=== PATIENT | female | born 1960 | race Caucasian/White ===

== ENCOUNTER 2022-01-05 13:55 | Emergency (ER) | payer MEDICAID ==
[~2022-01-05] VITALS: Ht 177.8 cm; Wt 79.4 kg
[2022-01-05] MEDS ORDERED: diphenhydrAMINE 25 MG CAP PO ONE ×2 (14:13→14:15)
[2022-01-05] MEDS ORDERED: BACITRACIN ZINC OINT 15 GM TUBE ONE (14:13)
[2022-01-05] MEDS ORDERED: ACETAMINOPHEN 325 MG TABLET ONE (14:13)
[2022-01-05] MEDS ORDERED: TDAP DIPH,PERTUSS,TET VAC/PF 0.5 ML DISP.SYRIN IM ONE ×2 (14:14→14:15)
[2022-01-05] MEDS ORDERED: CEphaleXIN 500 MG CAPSULE ONE (14:14)
[2022-01-05] MEDS ORDERED: BACITRACIN ZINC OINT 15 GM TUBE TOP ONE (14:15)
[2022-01-05] MEDS ORDERED: CEphaleXIN 500 MG CAPSULE PO ONE (14:15)
[2022-01-05] MEDS ORDERED: ACETAMINOPHEN 325 MG TABLET PO ONE (14:15)
[2022-01-05] MEDS ORDERED: ACET-2154 PO (14:20)
[2022-01-05] MEDS ORDERED: CEPH500C2 PO (14:20)
[2022-01-05] MEDS ORDERED: DIPH25TA62 PO (14:20)
--- NOTE | 2022-01-05 14:22 | NUR ---
Patient discharged to home in stable condition. Written and verbal after care instructions given. Patient verbalizes understanding of instructions. Stressed follow up or return to ER for worsening s/s.
== END 2022-01-05 15:08 | disposition home or self-care (01) ==
LOC: ER 13:55
DX: S90.861A Insect bite (nonvenomous), right foot, initial encounter (principal); L03.115 Cellulitis of right lower limb; W57.XXXA Bitten or stung by nonvenomous insect and other nonvenomous arthropods, initial encounter; Y93.H9 Activity, other involving exterior property and land maintenance, building and construction; Y92.89 Other specified places as the place of occurrence of the external cause; F17.210 Nicotine dependence, cigarettes, uncomplicated
CPT/HCPCS: 90471; 90715; 99284; 99406; Q0163; A4663

== ENCOUNTER 2022-01-22 23:40 | Emergency (ER) | payer MEDICAID ==
[~2022-01-22] VITALS: Ht 177.8 cm; Wt 79.4 kg
[~2022-01-22 23:40] MED LIST: ACET-2154 PO; CEPH500C2 PO; DIPH25TA62 PO
--- NOTE | 2022-01-22 23:48 | NUR ---
Dr estevez at bedside, MSE in progress.
[2022-01-23 00:21] LABS: MEAN CORPUSCULAR VOLUME 90.3 fL (75.5-95.3); PLATELET COUNT (AUTO) 387 K/uL (179-408)
[2022-01-23 00:25] LABS: CREATININE 0.9 mg/dL (0.6-1.3); MAGNESIUM 1.8 mg/dL (1.8-2.4); POTASSIUM 3.9 mmol/L (3.5-5.1)
[2022-01-23] MEDS ORDERED: SULF1TAB48 PO (00:28)
[2022-01-23] MEDS ORDERED: SULFAMETH/TRIMETH 800/160 MG TABLET ONE (00:59)
[2022-01-23] MEDS ORDERED: SULFAMETH/TRIMETH 800/160 MG TABLET PO ONE (01:00)
--- NOTE | 2022-01-23 02:54 | NUR ---
Patient discharged to home in stable condition. Written and verbal after care instructions given. Patient verbalizes understanding of instructions. Stressed follow up or return to ER for worsening s/s. pt denies pain. [id number]
[2022-01-23 02:56] VITALS: BP 144/100
== END 2022-01-23 02:57 | disposition home or self-care (01) ==
LOC: ER 23:40
DX: F17.210 Nicotine dependence, cigarettes, uncomplicated (principal)
CPT/HCPCS: 36415; 83735; 85025; 87070; 87077; A4663